=== PATIENT | female | born 1935 | race Caucasian/White ===

== ENCOUNTER 2021-01-13 07:40 | Day surgery (SDC) | payer MEDICARE, OTHER ==
[2021-01-06 16:15] LABS: BASOPHILS % (AUTO) 0.3 % (0-1); EOSINOPHILS # (AUTO) 0.1 X10'3 (0-0.9); EOSINOPHILS % (AUTO) 1.6 % (0-6); LYMPHOCYTES # (AUTO) 1.4 X10'3 (1.1-4.8); LYMPHOCYTES % (AUTO) 25.8 % (21-51); MEAN CORPUSCULAR HEMOGLOBIN 33.7 PG (27.0-31.0); MEAN CORPUSCULAR HGB CONC 34.6 g/dL (33.0-36.5); MEAN CORPUSCULAR VOLUME 97.4 FL (78-98); MEAN PLATELET VOLUME 7.6 FL (7.4-10.4); MONOCYTES # (AUTO) 0.6 X10'3 (0-0.9); MONOCYTES % (AUTO) 10.3 % (2-12); NEUTROPHILS # (AUTO) 3.4 X10'3 (1.8-7.7); PRE OP HEMATOCRIT 35.3 % (35.0-45.0); PRE OP HEMOGLOBIN 12.2 g/dL (12.0-16.0); PRE OP PLATELET COUNT 199 X10'3 (140-440); RED BLOOD COUNT 3.62 X10'6 (4.20-5.60); RED CELL DISTRIBUTION WIDTH 12.8 % (11.5-14.5)
[2021-01-06 16:21] LABS: CLARITY,URINE SLIGHTLY CLOUDY (Clear); COLOR,URINE YELLOW (Yellow); GLUCOSE, URINE NEGATIVE (Neg); KETONES,URINE NEGATIVE (Neg); LEUKOCYTE ESTERASE ,URINE NEGATIVE (Neg); NITRITES, URINE NEGATIVE (Neg); OCCULT BLOOD,URINE NEGATIVE (Neg); PROTEIN,URINE NEGATIVE (Neg); UROBILINOGEN,URINE 0.2 E.U/dL (0.2-1.0)
[2021-01-06 16:24] LABS: UA COLLECTION TYPE CLN CATCH MIDSTREAM
[2021-01-06 16:27] LABS: ALBUMIN 3.2 G/DL (3.4-5.0); ALBUMIN/GLOBULIN RATIO 0.9 (1.1-1.5); ALKALINE PHOSPHATASE 52 IU/L (46-116); BLOOD UREA NITROGEN 17 MG/DL (7-18); BUN/CREATININE RATIO 17.9 (6.6-38.0); CALCIUM 8.2 MG/DL (8.5-10.1); CHLORIDE 105 MMOL/L (99-107); CREATININE 0.95 MG/DL (0.40-0.90); PRE OP ALT 22 U/L (30-65); PRE OP ANION GAP 5 (8-16); PRE OP AST 18 U/L (10-37); PRE OP BILIRUB, TOTAL 0.3 MG/DL (0.0-1.0); PRE OP GLUCOSE 97 MG/DL (70-104); PRE OP POTASSIUM 4.3 MMOL/L (3.4-5.1); PRE OP SODIUM 141 MMOL/L (135-145); TOTAL CARBON DIOXIDE 31.2 MMOL/L (24-32); TOTAL PROTEIN 6.9 G/DL (6.4-8.2); eGFR 56 ML/MIN
[2021-01-06 16:33] LABS: MUCUS STRANDS FEW /LPF (Neg); SQUAMOUS EPITHELIAL CELL,UR MANY /LPF (FEW)
[2021-01-06 16:34] LABS: WBC,URINE 0-4 /HPF (0-4)
[2021-01-06 16:35] LABS: BACTERIA,URINE 2+ /HPF (Neg); RBC,URINE 0-2 /HPF (0-2)
[~2021-01-13] VITALS: Ht 167.6 cm; Wt 65.1 kg
[2021-01-13] VITALS (10 sets, daily range): BP systolic 132–166; BP diastolic 52–75
[~2021-01-13 07:40] MED LIST: ASCO-134 PO; ASPI-612 PO; ATEN25TA PO; BUPIVAcaine/PF 2.5 mg/ml (0.25%) 30ml vial ONE; DOCUMENT DATE & TIME OF BETA-BLOCKER PO ONE; ERGO400C PO; ESTR1.252 PO; LEVO50TA8 PO; POLY17PO10 PO; PSYL575P22 PO; ZOLP10TA PO; cefazolin/dext.iso 2gm/100ml IV ONE; famotidine 20mg tablet PO ONE; ringers solution, lacted 1,000 ML IV SCH
[2021-01-13] MEDS ORDERED: BUPIVAcaine/PF 2.5 mg/ml (0.25%) 30ml vial ONE (07:52)
[2021-01-13] MEDS ORDERED: propofol inj 20 ML IV ONE (09:36)
[2021-01-13] MEDS ORDERED: rocuronium 10mg/ml inj IV ONE (09:36)
[2021-01-13] MEDS ORDERED: midazolam 1 mg/ML 2ml injection ONE (09:55)
[2021-01-13] MEDS ORDERED: fentaNYL/PF 50MCG/1 ML 2ML syringe ONE (09:55)
[2021-01-13] MEDS ORDERED: sevoflurane 250ml liquid IH ONE (09:58)
[2021-01-13] MEDS ORDERED: dexamethasone sod phosphate 4mg/ml inj. ONE (10:12)
[2021-01-13] MEDS ORDERED: ringers solution, lacted 1,000 ML IV SCH (10:35)
[2021-01-13] MEDS ORDERED: meperidine/PF 25mg/ml syringe IV PRN ×3 (10:35)
[2021-01-13] MEDS ORDERED: proCHLORperazine 10 MG/2 ml inj IV PRN (10:35)
[2021-01-13] MEDS ORDERED: morphine 2 MG/ML inj. syringe IV PRN (10:35)
[2021-01-13] MEDS ORDERED: morphine 4 MG/ML inj SYRINge IV PRN (10:35)
[2021-01-13] MEDS ORDERED: ondansetron/PF 4mg/2ml inj IV PRN (10:35)
[2021-01-13] MEDS ORDERED: acetaminophen 1,000mg/100ml IV 100 ML IV ONE (10:56)
[2021-01-13] MEDS ORDERED: ondansetron/PF 4mg/2ml inj ONE (11:25)
[2021-01-13] MEDS ORDERED: glycopyrrolate 0.2mg/ml inj ONE (11:25)
[2021-01-13] MEDS ORDERED: neostigmine methylsulfate 1 MG/ML 10ml vial ONE (11:25)
--- NOTE | 2021-01-13 11:50 | NUR ---
Received from OR via [facility], accompanied by Anesthesiologist DR. MERCHANT, REPORT GIVEN. PATIENT WAKING UP, NO S/S OF PAIN, V/S WNL, C/O SLIGHT NAUSEA- NO MEDS NEEDED AT THIS TIME, SCD ON, 20G TO LUE, LAP SURGICAL SITES TO ABDOMEN X3 DERMABOND - CDI.
[2021-01-13] MEDS ORDERED: HYDROcodone/acetaminophen 5mg/325mg tablet PO STA (13:19)
--- NOTE | 2021-01-13 13:30 | NUR ---
PATIENT A&OX4, PAIN MAAGABLE-GIVEN 1 NORCO FOR THE RIDE HOME, V/S STABLE, SCD OFF, 20G TO LUE D/C, DERMABOND TO LAP SITES X3-CDI. I HAVE REVIEWED D/C ORDERS WITH PATIENT-ALL QUESTIONS ANSWERED, PT TOLERATING JUICE AND CRACKERS. PATIENT D/C HOME WITH ALL BELONGINGS, SON TO GIVE TRANSPORT.
== END 2021-01-13 13:30 | disposition home or self-care (01) ==
LOC: PAS 07:40
PROVIDERS: ATTEND Surgery
DX: K40.90 Unilateral inguinal hernia, without obstruction or gangrene, not specified as recurrent (principal); K41.90 Unilateral femoral hernia, without obstruction or gangrene, not specified as recurrent; M17.0 Bilateral primary osteoarthritis of knee; G43.909 Migraine, unspecified, not intractable, without status migrainosus; F32.9 Major depressive disorder, single episode, unspecified; I10 Essential (primary) hypertension; I34.0 Nonrheumatic mitral (valve) insufficiency; I47.1 Supraventricular tachycardia; Z98.890 Other specified postprocedural states; Z96.651 Presence of right artificial knee joint; Z79.899 Other long term (current) drug therapy; Z90.710 Acquired absence of both cervix and uterus; Z91.09 Other allergy status, other than to drugs and biological substances; Z79.82 Long term (current) use of aspirin; Z98.49 Cataract extraction status, unspecified eye; Z87.891 Personal history of nicotine dependence
CPT/HCPCS: 36415; 49650; 80053; 81001; 82948; 85025; 93005; C1758; C1781; J0131; J1100; J2250; J2405; J2704; J2710; J3010; J3490; A4215; A4618; J7120